=== PATIENT | female | born 1960 | race Caucasian/White ===

== ENCOUNTER 2016-08-09 10:02 | Emergency (ER) | payer OTHER ==
[2016-08-09 10:03] VITALS: BMI 43.0
[2016-08-09 10:27] VITALS: TEMP 98.7
--- NOTE | 2016-08-09 10:52 | ED PDOC ---
Arrival/HPI - General Chief Complaint: GI Problem Time Seen by Provider: 08/09/16 10:41 Historian: Patient - History of Present Illness Narrative History of Present Illness (Text): 08/09/16 10:52 A 56 year old female, whose past medical history includes hypertension, hyperlipidemia and hemorrhoids, presents to the emergency department complaining of constipation and dysuria for the past 3 weeks. History obtained through daughter who translated for patient. Daughter reports patient was seen by PMD and prescribed Lidocaine-prilocaine cream, Hydrocortisone, Bisacodyl and Ciprofloxacin for her symptoms, with no relief. Patient reports intermittent abdominal and back pain. She notes she had a normal bowel movement this morning. Patient denies any fever, chills, nausea, vomiting, rectal bleeding, chest pain, shortness of breath or any other complaints. PMD: Dr. Ernst Escalona Time/Duration: Other (3 weeks) Symptom Course: Unchanged Quality: Other Context: Home Past Medical History - Provider Review Nursing Documentation Reviewed: Yes - Tetanus Immunization Tetanus Immunization: Unknown - Reproductive Menopause: Yes - Cardiac Hx Cardiac Disorders: Yes Hx Hypertension: Yes - Pulmonary Hx Respiratory Disorders: No - Neurological Hx Neurological Disorder: Yes Hx Dizziness: Yes (x2 days) Hx Headaches: Yes Hx Migraine: Yes - HEENT Hx HEENT Disorder: No - Renal Hx Renal Disorder: No - Endocrine/Metabolic Hx Endocrine Disorders: No - Hematological/Oncological Hx Blood Disorders: No - Integumentary Hx Dermatological Disorder: No - Musculoskeletal/Rheumatological Hx Musculoskeletal Disorders: No Hx Arthritis: Yes - Gastrointestinal Hx Gastrointestinal Disorders: Yes ("heartburn") - Genitourinary/Gynecological Hx Genitourinary Disorders: No - Psychiatric Hx Psychophysiologic Disorder: No Hx Depression: No Hx Emotional Abuse: No Hx Physical Abuse: No Hx Substance Use: No - Past Surgical History Past Surgical History: No Previous - Surgical History Hx Section: Yes - Suicidal Assessment Feels Threatened In Home Enviroment: No Family/Social History - Physician Review Nursing Documentation Reviewed: Yes Family/Social History: No Known Family HX Smoking Status: Never Smoked Hx Alcohol Use: No Hx Substance Use: No Hx Substance Use Treatment: No Allergies/Home Meds Allergies/Adverse Reactions: Allergies No Known Allergies Allergy (Verified 08/09/16 10:18) Home Medications: Home Meds Medication Instructions Recorded Confirmed Lisinopril [Zestril] 10 mg PO DAILY 04/05/15 08/09/16 Pravastatin Sodium [Pravachol] 20 mg PO DAILY 04/05/15 08/09/16 Bisacodyl [Woman's Laxative] 2 tab PO HS 08/09/16 08/09/16 Ciprofloxacin [Cipro] 500 mg PO BID 08/09/16 08/09/16 Hydrocortisone 2.5% 1 apful TOP PRN PRN 08/09/16 08/09/16 Lidocaine 2.5% [Xylocaine 2.5%] 1 apful TOP PRN PRN 08/09/16 08/09/16 Review of Systems - Physician Review All systems were reviewed & negative as marked: Yes - Review of Systems Constitutional: absent: Fevers, Night Sweats Respiratory: absent: SOB Cardiovascular: absent: Chest Pain Gastrointestinal: Abdominal Pain, Constipation. absent: Nausea, Vomiting, Hematochezia Genitourinary Female: Dysuria Musculoskeletal: Back Pain Physical Exam Vital Signs Reviewed: Yes Vital Signs Temp Pulse Resp BP Pulse Ox 08/09/16 12:38 76 18 120/80 100 08/09/16 10:23 98.7 F 81 16 119/74 96 Temperature: Afebrile Blood Pressure: Normal Pulse: Regular Respiratory Rate: Normal Appearance: Positive for: Well-Appearing, Non-Toxic, Comfortable Pain Distress: None Mental Status: Positive for: Alert and Oriented X 3 - Systems Exam Head: Present: Atraumatic, Normocephalic Pupils: Present: PERRL Extroacular Muscles: Present: EOMI Conjunctiva: Present: Normal Mouth: Present: Moist Mucous Membranes Neck: Present: Normal Range of Motion Respiratory/Chest: Present: Clear to Auscultation, Good Air Exchange. No: Respiratory Distress, Accessory Muscle Use Cardiovascular: Present: Regular Rate and Rhythm, Normal S1, S2. No: Murmurs Abdomen: Present: Tenderness (LLQ tenderness to palpation), Normal Bowel Sounds , Guarding. No: Distention, Peritoneal Signs, Rebound Rectal: Present: Hemorrhoids (External hemorrhoids, non-thrombosed, skin tags), Normal Rectal Tone. No: Occult Blood, Rectal Tenderness, Gross Blood, Melena, Fissures, Nodule/Mass/Lesions Back: Present: Other (Mid lower back tenderness) Upper Extremity: Present: Normal Inspection. No: Cyanosis, Edema Lower Extremity: Present: Normal Inspection. No: Edema Neurological: Present: GCS=15, CN II-XII Intact, Speech Normal Skin: Present: Warm, Dry, Normal Color. No: Rashes Psychiatric: Present: Alert, Oriented x 3, Normal Insight, Normal Concentration Medical Decision Making ED Course and Treatment: 08/09/16 10:52 Impression: A 56 year old female with constipation and dysuria. Patient notes abdominal and back pain. Differential Diagnosis included but are not limited to: Plan: -- Abdomen CT -- Labs -- Urine culture -- Toradol -- Reassess and disposition Progress Notes: Rectal exam performed by me, chaperoned by lobo Wlaker, showed guaiac negative. Report Date : 08/09/2016 11:55:00 PROCEDURE: CT Abdomen and Pelvis without intravenous contrast Dictator : Socrates Nam MD IMPRESSION: No acute findings. No evidence of renal or ureteral stone 08/09/16 12:48 On re-evaluation, patient feels better, states symptoms have resolved and is in no acute distress. I have discussed the results and plan with the patient, who expresses understanding. Patient in agreement with plan to be discharged home. Patient is stable for discharge. Patient was instructed to follow up with physician or return if symptoms worsen or new concerning symptoms arise. - Lab Interpretations Lab Results: 08/09/16 11:14 08/09/16 11:14 Lab Results 08/09/16 11:14: Sodium 138, Potassium 4.1, Chloride 104, Carbon Dioxide 26, Anion Gap 12, BUN 13, Creatinine 0.8, Est GFR ( Amer) > 60, Est GFR (Non- Af Amer) > 60, Random Glucose 87, Calcium 9.6, Total Bilirubin 0.9, AST 22, ALT 34, Alkaline Phosphatase 62, Total Protein 7.7, Albumin 4.2, Globulin 3.5, Albumin/Globulin Ratio 1.2, Lipase 60 08/09/16 11:14: WBC 7.4, RBC 4.64, Hgb 14.6, Hct 43.1, MCV 92.9, MCH 31.5, MCHC 33.9, RDW 13.4, Plt Count 229, MPV 11.4 H, Gran % 66.8, Lymph % (Auto) 24.2, [place] % (Auto) 7.0 H, Eos % (Auto) 1.5, Baso % (Auto) 0.5, Gran # 4.95, Lymph # 1.8, [place] # 0.5, Eos # 0.1, Baso # 0.04 08/09/16 11:00: Urine Color Light yellow, Urine Appearance Clear, Urine pH 6.0, Ur Specific [place] 1.015, Urine Protein Negative, Urine Glucose (UA) Negative, Urine Ketones Negative, Urine Blood Moderate H, Urine Nitrate Negative, Urine Bilirubin Negative, Urine Urobilinogen 0.2, Ur Leukocyte Esterase Negative, Urine RBC 0 - 2, Urine WBC 0 - 2, Ur Epithelial Cells 0 - 2 I have reviewed the lab results: Yes - RAD Interpretation Radiology Orders: 08/09/16 10:52 ABD & PELVIS W/O PO OR IV CONT [CT] Stat - Medication Orders Current Medication Orders: Discontinued Medications Ketorolac Tromethamine (Toradol) 30 mg IVP STAT STA Stop: 08/09/16 10:53 Last Admin: 08/09/16 11:13 Dose: 30 mg Disposition/Present on Arrival - Present on Arrival Any Indicators Present on Arrival: No History of DVT/PE: No History of Uncontrolled Diabetes: No Urinary Catheter: No History of Decub. Ulcer: No History Surgical Site Infection Following: None - Disposition Have Diagnosis and Disposition been Completed?: Yes Diagnosis: Constipation, Back pain Disposition: HOME/ ROUTINE Disposition Time: 12:48 Patient Plan: Discharge Patient Problems: Current Active Problems Problem Status Onset Back pain Acute Constipation Acute Condition: IMPROVED Discharge Instructions (ExitCare): Constipation (ED), Hemorrhoids (ED), Acute Low Back Pain (ED) Additional Instructions: Mr Vogt, thank you for letting us take care of you today. Your provider was Dr. Burch. You were treated for Constipation, Back Pain, Hemorrhoid. The emergency medical care you received today was directed at your acute symptoms. If you were prescribed any medication, please fill it and take as directed. It may take several days for your symptoms to resolve. Return to the Emergency Department if your symptoms worsen, do not improve, or if you have any other problems. Please contact your doctor or call one of the physicians/clinics you have been referred to that are listed on the Patient Visit Information form that is included in your discharge packet. Bring any paperwork you were given at discharge with you along with any medications you are taking to your follow up visit. Our treatment cannot replace ongoing medical care by a primary care provider (PCP) outside of the emergency department. Thank you for allowing the [facility] team to be part of your care today. If you had an X-Ray or CT scan: A Radiologist will review the ED reading if any change in treatment is needed we will contact you. If you had a blood, urine, or wound culture: It will take several days for the results, if any change in treatment is needed we will contact you. If you had an STI test: It will take 48 hours for the results. Please call after 1 week if you have not heard back. Prescriptions: Docusate [Colace] 100 mg PO TID #30 cap Naproxen 500 mg PO BID PRN #30 tab PRN Reason: Pain, Moderate (4-7) Referrals: Ernst Escalona MD [Primary Care Provider] - Follow up with primary Forms: [employer] (Setswana)
[2016-08-09 11:14] LABS: ADD MANUAL DIFF? NO
[2016-08-09 11:17] LABS: URINE BILIRUBIN NEGATIVE (NEGATIVE); URINE BLOOD MODERATE (NEGATIVE); URINE GLUCOSE (UA) NEGATIVE (NEGATIVE); URINE KETONE NEGATIVE (NEGATIVE); URINE LEUKOCYTE ESTERASE NEGATIVE Leu/uL (NEGATIVE); URINE PROTEIN NEGATIVE mg/dL (<30 mg/dL); URINE UROBILINOGEN 0.2 E.U./dL (<1 E.U./dL)
[2016-08-09 11:18] LABS: BASO # 0.04 K/mm3 (0.0-2.0); BASO % 0.5 % (0.0-3.0); EOS # 0.1 (0.0-0.7); EOS % 1.5 % (1.5-5.0); GRAN # 4.95 (1.4-6.5); GRAN % 66.8 % (50.0-68.0); HEMATOCRIT 43.1 % (36.0-48.0); LYMPH # 1.8 (1.2-3.4); LYMPH % 24.2 % (22.0-35.0); MEAN CELL VOLUME 92.9 fL (80.0-105.0); MEAN CORPUSCULAR HEMOGLOBIN 31.5 pg (25.0-35.0); MEAN CORPUSCULAR HGB CONC 33.9 g/dl (31.0-37.0); MEAN PLATELET VOLUME 11.4 fl (7.0-11.0); MONO # 0.5 (0.1-0.6); PLATELET COUNT 229 10^3/uL (120.0-450.0); RED CELL DISTRIBUTION WIDTH 13.4 % (11.5-14.5); WHITE BLOOD COUNT 7.4 10^3/ul (4.5-11.0)
[2016-08-09 11:19] LABS: URINE APPEARANCE CLEAR (CLEAR); URINE COLOR LIGHT YELLOW (YELLOW)
[2016-08-09 11:21] LABS: URINE EPITHELIAL CELLS 0 - 2 /hpf (0-5); URINE RBC 0 - 2 /hpf (0-2); URINE WBC 0 - 2 /hpf (0-6)
--- NOTE | 2016-08-09 11:56 | CT ---
PROCEDURE: CT Abdomen and Pelvis without intravenous contrast HISTORY: abd/back pain r/o kidney stone r/o obstruction COMPARISON: None. TECHNIQUE: Without contrast.. Contrast Dose: Radiation dose: Total exam DLP = 1268 mGy-cm. This CT exam was performed using one or more of the following dose reduction techniques: Automated exposure control, adjustment of the mA and/or kV according to patient size, and/or use of iterative reconstruction technique. FINDINGS: LOWER THORAX: Unremarkable. LIVER: Unremarkable. No gross lesion or ductal dilatation. GALLBLADDER AND BILE DUCTS: Unremarkable. PANCREAS: Unremarkable. No gross lesion or ductal dilatation. SPLEEN: Unremarkable. ADRENALS: Unremarkable. No mass. KIDNEYS AND URETERS: Unremarkable. No hydronephrosis. No solid mass. VASCULATURE: Unremarkable. No aortic aneurysm. BOWEL: Unremarkable. No obstruction. No gross mural thickening. APPENDIX: Unremarkable. Normal appendix. PERITONEUM: Unremarkable. No free fluid. No free air. LYMPH NODES: Unremarkable. No enlarged lymph nodes. BLADDER: Unremarkable. REPRODUCTIVE: Unremarkable. BONES: No acute fracture. OTHER FINDINGS: None. IMPRESSION: No acute findings. No evidence of renal or ureteral stone
[2016-08-09 12:27] LABS: ALB/GLOB RATIO 1.2 (1.1-1.8); ALKALINE PHOSPHATASE 62 U/L (38-133); ALT/SGPT 34 U/L (7-56); AST/SGOT 22 U/L (15-39); BILIRUBIN,TOTAL 0.9 mg/dL (0.2-1.3); BLOOD UREA NITROGEN 13 mg/dL (7-21); CALCIUM 9.6 mg/dL (8.4-10.5); CARBON DIOXIDE 26 mmol/L (21-33); CHLORIDE 104 mmol/L (98-107); GFR AFRICAN-AMERICAN > 60; GLUCOSE,RANDOM 87 mg/dL (70-110); LIPASE 60 U/L (23-300); POTASSIUM 4.1 mmol/L (3.6-5.0); SODIUM 138 mmol/L (132-148); TOTAL PROTEIN 7.7 g/dL (5.8-8.3)
[2016-08-09 12:39] VITALS: BP 120/80; PULSE 76; RESP 18; O2SAT 100
== END 2016-08-09 13:03 | disposition home or self-care (01) ==
LOC: ED 10:02
DX: K59.00 Constipation, unspecified (principal); M54.9 Dorsalgia, unspecified; I10 Essential (primary) hypertension; E78.5 Hyperlipidemia, unspecified
CPT/HCPCS: 74176; 80053; 81001; 83690; 85025; 87086; 96374; 99284; J1885

== ENCOUNTER 2016-09-03 11:53 | Emergency (ER) | payer OTHER ==
[2016-09-03 12:14] VITALS: BMI 42.6
[2016-09-03 12:21] VITALS: RESP 18; TEMP 98.2; O2SAT 98
--- NOTE | 2016-09-03 13:18 | ED PDOC ---
Arrival/HPI - General Chief Complaint: GI Problem Time Seen by Provider: 09/03/16 11:58 Historian: Patient - History of Present Illness Narrative History of Present Illness (Text): 09/03/16 13:19 A 56 year old female, whose past medical history includes hypertension and hemorrhoids, presents to the emergency department complaining of hard stools, rectal pain x 6 weeks. Patient's daughter served as director veterinary. Daughter reports patient is complaining of hard stools, very difficult to defecate, feels as though her stools are scraping her rectum. Patient reports to taking medications prescribed by PMD and ED on prior visit, laxatives, Ibuprofen for pain and using creams for hemorrhoids, with no relief. Performing sitz baths and also using hydrocortisone cream and lidocaine gel. Denies any vomiting or abdominal pain or any other complaints at this time. PMD: Dr. Ernst Escalona Time/Duration: > month Symptom Onset: Sudden Symptom Course: Unchanged Activities at Onset: Rest Context: Home Past Medical History - Provider Review Nursing Documentation Reviewed: Yes - Infectious Disease Hx of Infectious Diseases: None - Tetanus Immunization Tetanus Immunization: Unknown - Cardiac Hx Cardiac Disorders: Yes Hx Hypertension: Yes - Pulmonary Hx Respiratory Disorders: No - Neurological Hx Neurological Disorder: Yes Hx Dizziness: Yes (x2 days) Hx Headaches: Yes Hx Migraine: Yes - HEENT Hx HEENT Disorder: No - Renal Hx Renal Disorder: No - Endocrine/Metabolic Hx Endocrine Disorders: No - Hematological/Oncological Hx Blood Disorders: No - Integumentary Hx Dermatological Disorder: No - Musculoskeletal/Rheumatological Hx Musculoskeletal Disorders: No Hx Arthritis: Yes - Gastrointestinal Hx Gastrointestinal Disorders: Yes ("heartburn") - Genitourinary/Gynecological Hx Genitourinary Disorders: No - Psychiatric Hx Psychophysiologic Disorder: No Hx Depression: No Hx Emotional Abuse: No Hx Physical Abuse: No Hx Substance Use: No - Past Surgical History Past Surgical History: No Previous - Surgical History Hx Section: Yes - Anesthesia Hx Anesthesia: Yes Hx Anesthesia Reactions: No Hx Malignant Hyperthermia: No - Suicidal Assessment Feels Threatened In Home Enviroment: No Family/Social History - Physician Review Nursing Documentation Reviewed: Yes Family/Social History: No Known Family HX Smoking Status: Never Smoked Hx Alcohol Use: No Hx Substance Use: No Hx Substance Use Treatment: No Allergies/Home Meds Allergies/Adverse Reactions: Allergies No Known Allergies Allergy (Verified 08/09/16 10:18) Home Medications: Home Meds Medication Instructions Recorded Confirmed Lisinopril [Zestril] 10 mg PO DAILY 04/05/15 09/03/16 Pravastatin Sodium [Pravachol] 20 mg PO DAILY 04/05/15 09/03/16 Bisacodyl [Woman's Laxative] 2 tab PO HS 08/09/16 09/03/16 Ciprofloxacin [Cipro] 500 mg PO BID 08/09/16 09/03/16 Hydrocortisone 2.5% 1 apful TOP PRN PRN 08/09/16 09/03/16 Lidocaine 2.5% [Xylocaine 2.5%] 1 apful TOP PRN PRN 08/09/16 09/03/16 Review of Systems - Physician Review All systems were reviewed & negative as marked: Yes - Review of Systems Gastrointestinal: Constipation, Other (hard stools and rectal bleeding). absent : Vomiting Physical Exam - Physical Exam Narrative Physical Exam (Text): 09/03/16 13:17 Constitutional: No acute distress. Head: Normocephalic. Atraumatic. Eyes: PERRL. ENT: Moist mucous membranes. Neck: Supple. Cardiovascular: Regular rate. Chest: No tenderness. Respiratory: Clear to auscultation bilaterally. GI: Soft. Nontender. Nondistended. Back: No CVA tenderness. Musculoskeletal: No tenderness or swelling of extremities. Skin: No rash. Neurologic: Alert, no focal deficit. 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 Vital Signs Reviewed: Yes Vital Signs Temp Pulse Resp BP Pulse Ox 09/03/16 14:55 87 18 113/67 98 09/03/16 12:21 98.2 F 82 18 105/52 L 98 Temperature: Afebrile Blood Pressure: Hypotensive Pulse: Regular Respiratory Rate: Normal Appearance: Positive for: Well-Appearing, Non-Toxic, Comfortable Pain Distress: None Mental Status: Positive for: Alert and Oriented X 3 Medical Decision Making ED Course and Treatment: 09/03/16 13:15 Impression: A 56 year old female with constipation and rectal bleeding. Plan: -- Radiology of abdomen -- Urinalysis -- Reassess and disposition Prior Visits: Notes and results from previous visits were reviewed. Patient last reported to the emergency department on 08/09/16 for evaluation of similar symptoms. Progress Notes: 09/03/16 14:19 Radiology of abdomen Creator : Socrates Nam MD FINDINGS: BOWEL: Normal. No obstruction. No free air. BONES: Normal. IMPRESSION: No active disease. Surgery consulted, team evaluated patient at bedside. Dr. Slater recommends discharge home, f/u in office tomorrow, continue sitz baths, lidocaine, hydrocortisone, and add lactulose. - Lab Interpretations Lab Results: Lab Results 09/03/16 13:45: Urine Color Light yellow, Urine Appearance Sl cloudy, Urine pH 7.5, Ur Specific [place] 1.010, Urine Protein Negative, Urine Glucose (UA) Negative, Urine Ketones Negative, Urine Blood Small H, Urine Nitrate Negative, Urine Bilirubin Negative, Urine Urobilinogen 0.2, Ur Leukocyte Esterase Negative , Urine RBC 2 - 5, Urine WBC 0 - 2, Ur Epithelial Cells 0 - 2 - RAD Interpretation Radiology Orders: 09/03/16 13:09 ABD 2 VIEWS (FLAT/UP OR DECUB) [RAD] Stat - Scribe Statement The provider has reviewed the documentation as recorded by the Bryant Jacobo Provider Scribe Attestation: All medical record entries made by the Scribe were at my direction and personally dictated by me. I have reviewed the chart and agree that the record accurately reflects my personal performance of the history, physical exam, medical decision making, and the department course for this patient. I have also personally directed, reviewed, and agree with the discharge instructions and disposition. Disposition/Present on Arrival - Present on Arrival Any Indicators Present on Arrival: No History of DVT/PE: No History of Uncontrolled Diabetes: No Urinary Catheter: No History of Decub. Ulcer: No History Surgical Site Infection Following: None - Disposition Have Diagnosis and Disposition been Completed?: Yes Diagnosis: Hemorrhoids Disposition: HOME/ ROUTINE Disposition Time: 15:15 Patient Plan: Discharge Patient Problems: Current Active Problems Problem Status Onset Hemorrhoids Acute Condition: STABLE Discharge Instructions (ExitCare): Hemorrhoids (ED) Prescriptions: Hydrocortisone 2.5% (Rectal) [Anusol-HC] 1 applic TOP BID #1 tube Lactulose 20 gm PO BID #240 ml Lidocaine 2.5% [Xylocaine 2.5%] 1 applic TOP BID #1 tube Referrals: Steven Slater MD [Medical Doctor] - Follow up with primary
--- NOTE | 2016-09-03 14:16 | RAD ---
HISTORY: constipated, r/o obstruction COMPARISON: No prior. FINDINGS: BOWEL: Normal. No obstruction. No free air. BONES: Normal. OTHER FINDINGS: None. IMPRESSION: No active disease.
[2016-09-03 14:22] LABS: PH,URINE 7.5 (4.7-8.0); URINE BILIRUBIN NEGATIVE (NEGATIVE); URINE BLOOD SMALL (NEGATIVE); URINE GLUCOSE (UA) NEGATIVE (NEGATIVE); URINE LEUKOCYTE ESTERASE NEGATIVE Leu/uL (NEGATIVE); URINE NITRATE NEGATIVE (NEGATIVE); URINE PROTEIN NEGATIVE mg/dL (<30 mg/dL); URINE UROBILINOGEN 0.2 E.U./dL (<1 E.U./dL)
[2016-09-03 14:25] LABS: URINE APPEARANCE SL CLOUDY (CLEAR); URINE COLOR LIGHT YELLOW (YELLOW)
[2016-09-03 14:31] LABS: URINE EPITHELIAL CELLS 0 - 2 /hpf (0-5); URINE WBC 0 - 2 /hpf (0-6)
[2016-09-03 14:56] VITALS: BP 113/67; PULSE 87
== END 2016-09-03 15:43 | disposition home or self-care (01) ==
LOC: ED 11:53
DX: K64.4 Residual hemorrhoidal skin tags (principal); I10 Essential (primary) hypertension

== ENCOUNTER 2017-05-23 14:21 | Emergency (ER) | payer OTHER ==
[2017-05-23 14:31] VITALS: BMI 43.7
[2017-05-23 14:32] VITALS: RESP 18; TEMP 98.7; O2SAT 97
--- NOTE | 2017-05-23 14:53 | ED PDOC ---
Arrival/HPI - General Chief Complaint: Trauma Time Seen by Provider: 05/23/17 14:45 Historian: Patient, Family (daughter) - History of Present Illness Narrative History of Present Illness (Text): 05/23/17 14:45 This 56 yo morbid obese female with pmh htn, and hypercholesterolemia, is brought to this ED by ambulance c/o right knee pain, and lower back pain x [employer]. Daughter was the poured concrete wall technician. Patient stated she slipped and fell down forward. Patient denies head trauma, neck pain, hip pain, LOC, diplopia, dysarthria, weakness, paresthesias, sob, cp, /GI incontinence, saddle anesthesias, urinary retention, abdominal pain, HUTCHNISON, neck pain, hip pain, ankle pain, dizziness, n/v, or CMS. Time/Duration: Other (hpi) Context: Other ([employer]) Past Medical History - Provider Review Nursing Documentation Reviewed: Yes - Infectious Disease Hx of Infectious Diseases: None - Tetanus Immunization Tetanus Immunization: Unknown - Cardiac Hx Cardiac Disorders: Yes Hx Hypertension: Yes - Pulmonary Hx Respiratory Disorders: No - Neurological Hx Neurological Disorder: Yes Hx Dizziness: Yes (x2 days) Hx Headaches: Yes Hx Migraine: Yes - HEENT Hx HEENT Disorder: No - Renal Hx Renal Disorder: No - Endocrine/Metabolic Hx Endocrine Disorders: No - Hematological/Oncological Hx Blood Disorders: No - Integumentary Hx Dermatological Disorder: No - Musculoskeletal/Rheumatological Hx Musculoskeletal Disorders: No Hx Arthritis: Yes - Gastrointestinal Hx Gastrointestinal Disorders: Yes ("heartburn") - Genitourinary/Gynecological Hx Genitourinary Disorders: No - Psychiatric Hx Psychophysiologic Disorder: No Hx Depression: No Hx Emotional Abuse: No Hx Physical Abuse: No Hx Substance Use: No - Past Surgical History Past Surgical History: No Previous - Surgical History Hx Section: Yes - Anesthesia Hx Anesthesia: Yes Hx Anesthesia Reactions: No Hx Malignant Hyperthermia: No - Suicidal Assessment Feels Threatened In Home Enviroment: No Family/Social History - Physician Review Nursing Documentation Reviewed: Yes Family/Social History: Other (noncontributory) Smoking Status: Never Smoked Hx Alcohol Use: No Hx Substance Use: No Hx Substance Use Treatment: No Allergies/Home Meds Allergies/Adverse Reactions: Allergies No Known Allergies Allergy (Verified 05/23/17 14:31) Home Medications: Home Meds Medication Instructions Recorded Confirmed Lisinopril [Zestril] 10 mg PO DAILY 04/05/15 05/23/17 Simvastatin [Zocor] 0 mg PO DAILY 05/23/17 05/23/17 Review of Systems - Review of Systems Constitutional: Normal. absent: Fatigue, Weight Change, Fevers Eyes: Normal ENT: Normal. absent: Sore Throat Respiratory: Normal. absent: SOB, Cough, Sputum Cardiovascular: Normal. absent: Chest Pain, Palpitations Gastrointestinal: Normal. absent: Abdominal Pain, Nausea, Vomiting Genitourinary Female: Normal. absent: Hematuria Musculoskeletal: Back Pain, Other (right knee pain). absent: Neck Pain Skin: Normal. absent: Rash Neurological: Normal. absent: Headache, Dizziness, Focal Weakness, Gait Changes , Speech Changes, Facial Droop, Disequilibrium, Seizure Endocrine: Normal Hemo/Lymphatic: Normal Psychiatric: Normal Physical Exam Vital Signs Temp Pulse Resp BP Pulse Ox 05/23/17 15:38 79 18 124/78 97 05/23/17 14:21 98.7 F 87 18 126/84 97 Temperature: Afebrile Blood Pressure: Normal Pulse: Regular Respiratory Rate: Normal Appearance: Positive for: Well-Appearing, Non-Toxic, Comfortable Pain Distress: None Mental Status: Positive for: Alert and Oriented X 3 - Systems Exam Head: Present: Atraumatic, Normocephalic, Other (no raccoon sign. no han sign). No: Contusion, Ecchymosis, Abrasion Pupils: Present: PERRL, Other (no hyphema) Extroacular Muscles: Present: EOMI Conjunctiva: Present: Normal Ears: Present: Normal, NORMAL TM, Other (no hemotympanum) Mouth: Present: Moist Mucous Membranes Neck: Present: Normal Range of Motion, Trachea Midline. No: Meningeal Signs, MIDLINE TENDERNESS, Paraspinal Tenderness, Lymphadenopathy Respiratory/Chest: No: Tender to Palpation Abdomen: No: Tenderness Back: Present: Normal Inspection, Paraspinal Tenderness (mild right paravertebral tenderness. No vertebral point tenderness. No vertebral step off ). No: CVA Tenderness, Midline Tenderness Upper Extremity: Present: Normal Inspection, Normal ROM, NORMAL PULSES, Neurovascularly Intact, Capillary Refill < 2s Lower Extremity: Present: Normal Inspection, NORMAL PULSES, Normal ROM, Tenderness (mild tenderness on anterior right knee, medial to patella. No swelling, ecchymosis, or abrasion), Neurovascularly Intact, Capillary Refill < 2 s. No: Edema, CALF TENDERNESS, Cyanosis, Josh's Sign, Erythema, Deformity, Temperature Abnormalties Neurological: Present: GCS=15, CN II-XII Intact, Speech Normal, Motor Func Grossly Intact, Normal Sensory Function, Normal Cerebellar Funct, Gait Normal ( with mild pain during ambulation) Skin: Present: Warm, Dry, Normal Color. No: Rashes Psychiatric: Present: Alert, Oriented x 3, Normal Insight, Normal Concentration Medical Decision Making ED Course and Treatment: 05/23/17 15:51 Patient feels better. She wishes to be discharge home. Patient was recommended to f/u pmd in 1-2 days. To return to emergency if symptoms worsen. Re-evaluation Time: 15:52 Reassessment Condition: Re-examined, Improved - RAD Interpretation Narrative RAD Interpretations (Text): 05/23/17 15:52 LS x-rays: No Fx. Knee x-rays: No Fx. Radiology Orders: 05/23/17 14:58 KNEE W PATELLA RIGHT 3 VIEW [RAD] Stat LS SPINE WITH OBL > 18 YRS OLD [RAD] Stat - Medication Orders Current Medication Orders: Discontinued Medications Ketorolac Tromethamine (Toradol) 30 mg IM STAT STA Stop: 05/23/17 14:58 Last Admin: 05/23/17 15:10 Dose: 30 mg MAR Pain Assessment Document 05/23/17 15:10 EQ (Rec: 05/23/17 15:11 EQ [id number]) Pain Reassessment Is this a pain reassessment? No Sleep Is patient sleeping during reassessment? No Presence of Pain Presence of Pain Yes IM Administration Charges Document 05/23/17 15:10 EQ (Rec: 05/23/17 15:11 EQ [id number]) Injection Site MAR Injection Site Left Arm Charges for Administration # of IM Administrations 1 Disposition/Present on Arrival - Present on Arrival Any Indicators Present on Arrival: No History of DVT/PE: No History of Uncontrolled Diabetes: No Urinary Catheter: No History of Decub. Ulcer: No History Surgical Site Infection Following: None - Disposition Have Diagnosis and Disposition been Completed?: Yes Diagnosis: Fall from slip, trip, or stumble, Knee pain, acute, Back pain Disposition: HOME/ ROUTINE Disposition Time: 15:55 Patient Plan: Discharge Condition: IMPROVED Discharge Instructions (ExitCare): Knee Pain (DC) Additional Instructions: Call private doctor for follow up visit in 1-2 days. Take medication as instructed with food. Return to emergency if pain worsen. Prescriptions: Cyclobenzaprine [Cyclobenzaprine HCl] 10 mg PO DAILY #10 tab Naproxen 500 mg PO BID PRN #14 tablet PRN Reason: Pain, Severe (8-10) Referrals: [facility], [Non-Staff] - Follow up with primary [facility] [Outside] - Follow up with primary [facility] [Outside] - Follow up with primary Forms: [employer] (Chilean)
[2017-05-23 15:39] VITALS: BP 124/78; PULSE 79
--- NOTE | 2017-05-23 16:15 | RAD ---
PROCEDURE: Radiographs of the Lumbar Spine. HISTORY: pain COMPARISON: No prior. FINDINGS: BONES: Normal alignment. No listhesis. No fracture. DISC SPACES: Unremarkable. OTHER FINDINGS: None. IMPRESSION: Unremarkable radiographs of the lumbar spine.
--- NOTE | 2017-05-23 16:16 | RAD ---
PROCEDURE: Right Knee and patella Radiographs. HISTORY: pain COMPARISON: None. FINDINGS: BONES: Normal. No fracture. JOINTS: Normal. No osteoarthritis. JOINT EFFUSION: None. OTHER FINDINGS: None. IMPRESSION: Normal radiographs of the right knee.
== END 2017-05-23 16:12 | disposition home or self-care (01) ==
LOC: ED 14:21
DX: M54.5 Low back pain (principal); M25.561 Pain in right knee; W01.0XXA Fall on same level from slipping, tripping and stumbling without subsequent striking against object, initial encounter; I10 Essential (primary) hypertension; E78.00 Pure hypercholesterolemia, unspecified; E66.01 Morbid (severe) obesity due to excess calories
CPT/HCPCS: 72110; 73562; 96372; 99284; J1885